=== PATIENT | male | born 1995 | race African-American/Black ===

== ENCOUNTER → 2020-05-31 | Day surgery (SDC) | payer OTHER ==
[~2020-05-31] MED LIST: FENTANYL CITRATE/PF 100MCG/2 ML INJ ONE; HYOSCYAMINE 0.125 MG TAB ONE; HYOSCYAMINE SULFATE 0.5 MG/ML INJ ONE; LIDOCAINE HCL 2% LOCAL INJ 5 ML SDV VIAL INJ ONE; MIDAZOLAM HCL 5 MG/ML VIAL ONE; PROPOFOL IV EMULSION 10 MG/ML 20 ML VIAL ONE; SIMETHICONE 40 MG/0.6 ML BTL ONE
[2020-05-31 09:05] VITALS: BP 109/68
--- NOTE | 2020-05-31 10:16 | Operative Report ---
DATE OF PROCEDURE: 05/31/2020 SURGEON: Tahir Malave MD PROCEDURE: Colonoscopy with biopsies. INDICATIONS FOR PROCEDURE: Fecal urgency, bright red blood per rectum, family history of Crohn disease. MEDICATIONS: The patient was done under MAC, please see anesthesiologist's note. PROCEDURE IN DETAIL: With the patient in the left lateral decubitus position, a flexible fiberoptic Olympus colonoscope was inserted into the rectum with ease and advanced all the way to the cecum. Ileocecal valve appeared to be within normal limits that was intubated and the scope was advanced into the terminal ileum. Biopsies were obtained. The scope was then withdrawn back into the colon. Mucosa overlying the cecum overall appeared to be within normal limits. The scope was then withdrawn slowly and mucosa overlying the ascending, transverse, descending, sigmoid, and rectum revealed some patchy mild inflammatory changes and random biopsies were obtained. The scope was then retroflexed into the distal rectum and the area around the dentate line appeared to be within normal limits. The scope was then straightened out and it was subsequently withdrawn. There was some perianal erythema noted. The patient tolerated the procedure well. IMPRESSION: 1. Patchy mild inflammatory changes throughout the colon. Random biopsies obtained. 2. Proctitis, mild, biopsied. PLAN: Follow up histology. Check CRP, sedimentation rate, and IBD panel. Initiate Bentyl 20 mg one p.o. t.i.d. VSL#3 one p.o. daily. Tahir Malave MD [facility] – [place]/MODL /[id number]
[2020-05-31 11:07] LABS: WBC,FECAL (FECAL LACTOFERRIN) NEGATIVE (NEGATIVE)
[2020-05-31 13:01] LABS: C DIFFICILE TOXIN A&B AMP PROB NEGATIVE (NEGATIVE)
== END | disposition home or self-care (01) ==
LOC: OR 06:35
PROVIDERS: ATTEND Internal Medicine Gastroenterology
DX: K52.9 Noninfective gastroenteritis and colitis, unspecified (principal); K62.89 Other specified diseases of anus and rectum; R20.8 Other disturbances of skin sensation; Z88.1 Allergy status to other antibiotic agents; Z01.812 Encounter for preprocedural laboratory examination; Z20.828 Contact with and (suspected) exposure to other viral communicable diseases; Z68.38 Body mass index [BMI] 38.0-38.9, adult; Z83.79 Family history of other diseases of the digestive system
CPT/HCPCS: 36415; 45380; 83630; 83993; 85651; 86140; 86256; 86671; 87045; 87177; 87328; 87493; J1980; J2001; J2250; J2704; J3010; U0002; 45378